=== PATIENT | female | born 1990 | race Caucasian/White ===

== ENCOUNTER 2016-12-01 06:41 | Emergency (ER) | payer OTHER ==
--- NOTE | ~2016-12-01 | EKG ---
PATIENT: VIKTOR RAMACHANDRAN UNIT #: [id number] Ventricular Rate: 61 BPM Atrial Rate: 61 BPM P-R Interval: 132 ms QRS Duration: 94 ms Q-T Interval: 446 ms QTC Calculation(Bezet): 448 ms P [place]: 22 degrees Calculated R [place]: 34 degrees Calculated T [place]: 31 degrees Diagnosis Line: Normal sinus rhythm with sinus arrhythmia Diagnosis Line: Normal ECG Diagnosis Line: No previous ECGs available Diagnosis Line: Confirmed by BRIANNA DEJESUS MD ([id number]) on Diagnosis Line: 12/01/2016 11:21:08 PM INTERPRETING MD: IVONNE
--- NOTE | ~2016-12-01 | US67 ---
[facility] RADIOLOGY TEXT RESULTS PATIENT: VIKTOR RAMACHANDRAN LOCATION: [place] : [birth year] UNIT #: [id number] AGE: [address]: Shen Boone MD SEX: F ORDER DR: [id number] [facility] [place]. [place], [place] [address] [id number] MR#: [id number] Acc #: [id number] NAME: VIKTOR RAMACHANDRAN : 1990 SEX: F STUDY DATE/TIME: 12/01/2016 7:18 UNIT: [facility] ROOM: STUDY DESCRIPTION: Gallbladder Attending Physician: Shen Boone M.D. Ordering Physician: Shen Boone M.D. Primary Care Physician: Primary Care Physician No MEDICAL IMAGING REPORT This report is preliminary unless electronic signature is present EXAM Gallbladder ultrasound HISTORY Pain for 4 hours in upper abdomen COMPARISON 01/14/2016 FINDINGS The pancreas is poorly visualized. The head region appears normal. The liver is difficult to penetrate. No focal lesions are identified. Portal vein is patent with flow into the liver. The right kidney is 10.2 cm in length and appears normal. The gallbladder is adequately distended and contains multiple small mobile stones. The common bile duct is 3.0 mm in diameter. The gallbladder wall is not thickened measuring 2.0 mm in diameter. IMPRESSION 1. Multiple gallstones are identified but there is no evidence of cholecystitis. 2. Otherwise the study is negative. Dictated by... Amarjit Maravilla M.D. THIS IS AN ELECTRONICALLY VERIFIED REPORT Amarjit Maravilla M.D. at 12/01/2016 4:49 PM TESSY/mickey TD: 12/01/2016 09:19 [facility] RADIOLOGY TEXT RESULTS PATIENT: VIKTOR RAMACHANDRAN LOCATION: [place] : [birth year] UNIT #: [id number] AGE: [address]: Shen Boone MD SEX: F ORDER DR: DEMAR #: [id number] MEDICAL IMAGING REPORT Page 1 of 1 COPY
[~2016-12-01 06:41] MED LIST: AMOXICILLIN PO; AMOXICILLIN500 M1 PO; AMOXICILLIN875 MG PO; ATARAX PO; ATIVAN PO; ATIVAN0.5 MG PO; BACTRIM DS TABL1 TA1 PO; BENZONATATE PO; DOXYCYCLINE HY100 M3 PO; ELIMITE60 GM; ELIMITE60 GM TOP; FERROUS SULFATE1 TAB PO; FLAGYL PO; IBUPROFEN PO; IBUPROFEN600 MG PO; KEFLEX500 MG PO; MACROBID 100 M100 MG PO; MACROBID100 MG PO; NAPROSYN-EC500 M1 PO; NAPROSYN-EC500 MG PO; NAPROSYN500 MG PO; NAPROXEN PO; NO MEDICATIONS; PHENERGAN DM1 ML PO; PHENERGAN PO; PHENERGAN25 MG PO; PREDNISONE PO; PREDNISONE10 MG/DOSE PO; PRENATAL1 TA1 PO; PREVACID30 MG/BOTT PO; REGLAN5 MG PO; ROBITUSSIN A-C S5 ML PO; VISTARIL PO; VOLTAREN50 MG PO; ZOFRAN ODT4 MG DOB; ZOFRAN PO
[2016-12-01 07:09] LABS: BASOPHIL# 0.1 X10e3 (0-0.3); EOSINOPHIL# 0.2 X10e3 (0-0.7); HEMATOCRIT 41.2 % (35.0-45.0); HEMOGLOBIN 13.7 gm/dL (12.0-16.0); LYMPHOCYTE# 3.8 X10e3 (1.0-3.5); MEAN CELL VOLUME 88.4 FL (83-96); MEAN CORPUSCULAR HEMOGLOBIN 29.5 PG (28-34); MEAN CORPUSCULAR HGB CONC 33.3 g/dL (30-36); MEAN PLATELET VOLUME 8.5 FL (6.5-11.5); MONOCYTE# 0.7 X10e3 (0-1.0); MONOCYTE% 7.6 % (3.0-12.0); NEUTROPHIL# 4.3 X10e3 (1.5-7.1); NEUTROPHIL% 47.4 % (40-75); PLATELET COUNT 235 X10e3 (140-420); RED BLOOD COUNT 4.66 X10e (3.90-5.30); RED CELL DISTRIBUTION WIDTH 13.3 % (11.0-15.5)
[2016-12-01 07:10] LABS: DIFF IND NO
[2016-12-01 07:21] LABS: URINE SOURCE CLEAN CATCH
[2016-12-01 07:29] LABS: URINE APPEARANCE CLEAR; URINE BILIRUBIN NEG (NEG); URINE BLOOD 1+ (NEG); URINE COLOR DK YELLOW; URINE GLUCOSE NEG (NEG); URINE KETONE TRACE (NEG); URINE LEUKOCYTE ESTERASE NEG (NEG); URINE NITRATE NEG (NEG); URINE PROTEIN NEG (NEG)
[2016-12-01 07:32] LABS: U HYALINE CASTS AUWI 0-2 /[LPF]; URINE BACTERIA AUWI NEG (NEGATIVE); URINE SQUAMOUS EPITHELIAL CELL OCC /[HPF]; UWBCS1 AUWI 0-2 (0-5)
[2016-12-01 07:34] LABS: CULTURE INDICATED? NO
[2016-12-01 07:40] LABS: BILIRUBIN, DIRECT 0.1 mg/dL (0.0-0.2); BILIRUBIN,INDIRECT 0.2 mg/dL (0.0-0.9); BILIRUBIN,TOTAL 0.3 mg/dL (0.2-2.0); BUN/CREATININE RATIO 17.5; CREATININE SERUM 0.8 mg/dL (0.6-1.4); GLOM FILT RATE Estimated 103.3 mL/min (>60); POTASSIUM 3.4 mmol/L (3.5-5.1); PROTEIN TOTAL SERUM 7.5 g/dL (6.0-8.3)
== END 2016-12-01 09:18 | disposition home or self-care (01) ==
LOC: CED 06:41
PROVIDERS: Emergency Medicine
DX: K80.70 Calculus of gallbladder and bile duct without cholecystitis without obstruction (principal); F41.9 Anxiety disorder, unspecified; F17.200 Nicotine dependence, unspecified, uncomplicated
CPT/HCPCS: 36415; 76705; 80048; 80076; 81003; 82150; 83690; 84703; 85025; 93005; 96361; 96374; 96375; 99284; J2270; J2405